=== PATIENT | male | born 1970 | race Hispanic/Latino ===

== ENCOUNTER 2017-05-27 10:13 | Outpatient (CLI) | payer OTHER ==
--- NOTE | 2017-05-27 10:46 | XRay Report ---
RIGHT SHOULDER: Pain. Routine views demonstrate normal bony and soft tissue structures with normal joint alignment of the shoulder. IMPRESSION: Normal study.
== END 2017-05-27 10:14 | disposition home or self-care (01) ==
LOC: SPVIMAG 10:13
PROVIDERS: ATTEND Physical Medicine & Rehabilitation
DX: M25.511 Pain in right shoulder (principal)